=== PATIENT | female | born 1990 | race Caucasian/White ===

== ENCOUNTER 2021-09-30 15:43 | Emergency (ER) | payer OTHER, SELFPAY ==
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
[2021-09-30 16:35] VITALS: BP 152/93; PULSE 95; RESP 18; TEMP 36.6; O2SAT 100; BMI 26.2
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
[2021-09-30 18:23] VITALS: BP 150/82; PULSE 80; RESP 16; O2SAT 100
== END 2021-09-30 19:54 | disposition home or self-care (01) ==
PROVIDERS: Emergency Provider Emergency Medicine
DX: Z04.1 Encounter for examination and observation following transport accident (principal); M54.16 Radiculopathy, lumbar region; M54.6 Pain in thoracic spine; M54.50 Low back pain, unspecified
CPT/HCPCS: 72072; 72100; 99283